=== PATIENT | male | born 1990 | race Hispanic/Latino ===

== ENCOUNTER 2022-07-03 10:18 | Emergency (ER) | payer OTHER ==
[~2022-07-03] VITALS: Ht 165.1 cm; Wt 68.0 kg
[2022-07-03 10:22] VITALS: BP 107/75
[2022-07-03] MEDS ORDERED: GUAIFENESIN-CODEINE 5 ML SYRUP PO STA (11:04)
[2022-07-03] MEDS ORDERED: DEXAMETHASONE SOD PHOSPHATE 4 MG/ML 1ML VIAL IM STA (11:04)
[2022-07-03] MEDS ORDERED: OSEL75 PO (11:19)
== END 2022-07-03 11:43 | disposition home or self-care (01) ==
LOC: EDH 10:18
DX: J10.1 Influenza due to other identified influenza virus with other respiratory manifestations (principal); Z98.890 Other specified postprocedural states
CPT/HCPCS: 99283; 87880; 87804 ×2; 96372; J1100